=== PATIENT | male | born 1965 | race Hispanic/Latino ===

== ENCOUNTER 2022-05-30 08:09 | Emergency (ER) | payer SELFPAY ==
--- NOTE | 2022-05-30 09:51 | Emergency Department Report ---
ED Syncope [facility] - General Chief Complaint: Head Injury Stated Complaint: FALL - History of Present Illness Initial Comments: 57-year-old male from [place] presents to the ED with syncope episode. Patient states that he started on new medication for anxiety and depression which caused him to be dizzy. He states that he had a history of hypertension and current taking-unknown hypertension medication. Patient states he also has a history of alcoholism. States that he was on a nonvoluntary 1013 and [place] due to suicidal ideation after binge drinking. Patient states that he do not remember much but feeling lightheaded and awaking with a bruising noted to the right eye. Denies headache blurry vision nausea vomiting at present time., Patient will transport via EMS. Timing/Prior Episodes: no prior history Precipitating Factors: Positive: lightheadedness Loss of Consciousness: brief (seconds) Current Symptoms: back to normal - Related Data Allergies/Adverse Reactions: Allergies codeine Allergy (Verified 05/30/22 09:52) Itching ED Review of Systems ROS: Stated complaint: FALL Other details as noted in HPI ED Physical Exam - General Limitations: No Limitations ED Course Vital Signs 05/30/22 05/30/22 05/30/22 08:10 09:47 11:40 Pulse Rate 90 83 78 Respiratory 14 17 Rate Blood Pressure 133/87 114/75 118/72 [Left] O2 Sat by Pulse 98 98 98 Oximetry ED Medical Decision Making - Lab Data Result diagrams: 05/30/22 10:55 05/30/22 09:44 - Radiology Data [facility] [address] [place] [address] Cat Scan Report Signed Patient: DESIREE SEPULVEDA MR#: [id number] 3 : 1965 Acct:[id number] Age/Sex: 57 / M ADM Date: 05/30/22 Loc: ED Attending Dr: Ordering Physician: RADHA ELLIOTT Date of Service: 05/30/22 Procedure(s): CT head/brain wo con Accession Number(s): [id number] cc: RADHA ELLIOTT CT HEAD WITHOUT CONTRAST INDICATION / CLINICAL INFORMATION: Syncope. TECHNIQUE: All CT scans at this location are performed using CT dose reduction for ALARA by means of automated exposure control. COMPARISON: None available. FINDINGS: HEMORRHAGE: No evidence of intracranial hemorrhage or extra-axial fluid collection. EXTRA-AXIAL SPACES: Cortical sulci, sylvian fissures and basilar cisterns have an unremarkable appearance. VENTRICULAR SYSTEM: The third and lateral ventricles are of normal size and configuration. CEREBRAL PARENCHYMA: No areas of abnormal brain parenchymal attenuation are identified. There is no indication of recent infarction. MIDLINE SHIFT OR HERNIATION: There is no mass effect. CEREBELLUM / BRAINSTEM: Brainstem and cerebellum have an unremarkable appearance. MIDLINE STRUCTURES:No abnormalities of the pituitary gland or pineal region are identified. INTRACRANIAL VESSELS:Calcified atherosclerotic plaque is present along the course the cavernous segments of both internal carotid arteries. ORBITS: Status post bilateral cataract surgery. No additional abnormality. SOFT TISSUES of HEAD: No significant abnormality. CALVARIUM: Evaluation of bone windows reveals no abnormalities. PARANASAL SINUSES / MASTOID AIR CELLS: Visualized portions of the paranasal sinuses are free from inflammatory mucosal disease. Mastoid air cells are normally pneumatized. IMPRESSION: 1. No acute intracranial abnormality. Signer Name: Frantz Arboleda MD Signed: 05/30/2022 10:44 AM Workstation Name: [id number] Transcribed By: Dictated By: Frantz Arboleda MD Electronically Authenticated By: Frantz Arboleda MD Signed Date/Time: 05/30/22 1044 DD/ 1041 TD/TT: [facility] [address] [place] [address] Cat Scan Report Signed Patient: DESIREE SEPULVEDA MR#: [id number] 3 : 1965 Acct:[id number] Age/Sex: 57 / M ADM Date: 05/30/22 Loc: ED Attending Dr: Ordering Physician: RADHA ELLIOTT Date of Service: 05/30/22 Procedure(s): CT facial bones wo con Accession Number(s): [id number] cc: RADHA ELLIOTT CT MAXILLOFACIAL WITHOUT CONTRAST INDICATION / CLINICAL INFORMATION: right eye injury. TECHNIQUE: All CT scans at this location are performed using CT dose reduction for ALARA by means of automated exposure control. COMPARISON: Head CT also dated 05/30/2022 FINDINGS: FACIAL BONES: No fracture or other significant abnormality. CRUSHER SUPERVISOR SPACES:Evaluation of the commodity manager space structures reveal no abnormalities. SALIVARY GLANDS: Parotid and submandibular salivary glands have an unremarkable appearance. PARANASAL SINUSES: Paranasal sinuses are free from inflammatory mucosal disease. NASAL CAVITY: No significant abnormality. ORBITS: Status post bilateral cataract surgery. No additional abnormality. There is no indication of orbital fracture. TEMPORAL BONES:Visualized mastoid air cells and the middle ear cavities are normally pneumatized. VISUALIZED INTRACRANIAL STRUCTURES: Please refer to CT head report which is dictated separately IMPRESSION: 1. No indication of facial fracture or other osseous abnormality. Signer Name: Frantz Arboleda MD Signed: 05/30/2022 10:46 AM Workstation Name: [id number] Transcribed By: Dictated By: Frantz Arboleda MD Electronically Authenticated By: Frantz Arboleda MD Signed Date/Time: 05/30/22 1046 - Medical Decision Making 57-year-old male from [place] presents to the ED with syncope episode. Patient states that he started on new medication for anxiety and depression which caused him to be dizzy. He states that he had a history of hypertension and current taking-unknown hypertension medication. Patient states he also has a history of alcoholism. States that he was on a nonvoluntary 1013 and [place] due to suicidal ideation after binge drinking. Patient states that he do not remember much but feeling lightheaded and awaking with a bruising noted to the right eye. Denies headache blurry vision nausea vomiting at present time., Patient will transport via EMS. CT of the head and face shows no abnormality. Rechecked the patient is resting quietly quietly and comfortable and feeling better. I discussed the results of diagnostic study, my clinical impression and the plan for further treatment with the patient. Patient agrees with plan and discharge at this present time. All question addressed. I have given the patient instruction regarding a diagnosis ,expectation ,follow- up and return precaution. I explained to the patient that emergent condition may arise and to return to the ED for new worsen and any new persisting condition. I have explained the importance of following up with the primary care physician or referral physician listed below has instructed. The patient verbalized understanding of discharge instruction. Abnormal Lab Results 05/30/22 05/30/22 05/30/22 09:44 09:44 10:55 WBC 8.3 RBC 3.82 Hgb 14.2 Hct 40.7 MCV 106 H MCH 37 H MCHC 35 H RDW 18.3 H Plt Count 96 L PT 13.0 INR 0.87 Sodium 142 Potassium 3.6 Chloride 100.8 Carbon Dioxide 28 Anion Gap 17 BUN 19 Creatinine 0.9 Estimated GFR > 60 BUN/Creatinine Ratio 21 Glucose 97 Calcium 9.4 Magnesium 1.40 L Total Bilirubin 0.40 AST 39 ALT 38 Alkaline Phosphatase 87 Total Creatine Kinase 125 CK-MB (CK-2) 2.4 CK-MB (CK-2) Rel Index 1.9 Troponin T < 0.010 Total Protein 6.3 Albumin 3.9 Albumin/Globulin Ratio 1.6 Critical care attestation.: If time is entered above; I have spent that time in minutes in the direct care of this critically ill patient, excluding procedure time. ED Disposition Clinical Impression: Contusion, eye, right Qualifiers: Encounter type: initial encounter Qualified Code(s): S05.11XA - Contusion of eyeball and orbital tissues, right eye, initial encounter Syncope Qualifiers: Syncope type: unspecified Qualified Code(s): R55 - Syncope and collapse Disposition: 01 HOME / SELF CARE / HOMELESS Is pt being admited?: No Does the pt Need Aspirin: No Condition: Stable Instructions: Syncope (ED), Eye Contusion, [id number], How to Use Cold Therapy, Rcfd-[id number], Syncope, [id number], How to Use Cold Therapy Additional Instructions: Return to [place] Return to the ED for any worsening symptoms Time of Disposition: 11:46
[2022-05-30 10:30] LABS: INR 0.87 (0.87-1.13)
[2022-05-30 10:44] LABS: Creatine Kinase MB 2.4 ng/mL (0.0-4.0)
[2022-05-30 10:46] LABS: Alanine Aminotransferase 38 units/L (7-56); Albumin 3.9 g/dL (3.9-5); BUN/Creatinine Ratio 21; Blood Urea Nitrogen 19 mg/dL (9-20); Calcium 9.4 mg/dL (8.4-10.2); Hemolysis Index 10
--- NOTE | 2022-05-30 10:49 | Cat Scan Report ---
CT HEAD WITHOUT CONTRAST INDICATION / CLINICAL INFORMATION: Syncope. TECHNIQUE: All CT scans at this location are performed using CT dose reduction for ALARA by means of automated e xposure control. COMPARISON: None available. FINDINGS: HEMORRHAGE: No evidence of intracranial hemorrhage or extra-axial fluid collection. EXTRA-AXIAL SPACES: Cortical sulci, sylvian fissures and basilar cisterns have an unremarkable appear ance. VENTRICULAR SYSTEM: The third and lateral ventricles are of normal size and configuration. CEREBRAL PARENCHYMA: No areas of abnormal brain parenchymal attenuation are identified. There is no i ndication of recent infarction. MIDLINE SHIFT OR HERNIATION: There is no mass effect. CEREBELLUM / BRAINSTEM: Brainstem and cerebellum have an unremarkable appearance. MIDLINE STRUCTURES:No abnormalities of the pituitary gland or pineal region are identified. INTRACRANIAL VESSELS:Calcified atherosclerotic plaque is present along the course the cavernous segme nts of both internal carotid arteries. ORBITS: Status post bilateral cataract surgery. No additional abnormality. SOFT TISSUES of HEAD: No significant abnormality. CALVARIUM: Evaluation of bone windows reveals no abnormalities. PARANASAL SINUSES / MASTOID AIR CELLS: Visualized portions of the paranasal sinuses are free from inf lammatory mucosal disease. Mastoid air cells are normally pneumatized. IMPRESSION: 1. No acute intracranial abnormality. Signer Name: Frantz Arboleda MD Signed: 05/30/2022 10:44 AM Workstation Name: [id number]
--- NOTE | 2022-05-30 10:50 | Cat Scan Report ---
CT MAXILLOFACIAL WITHOUT CONTRAST INDICATION / CLINICAL INFORMATION: right eye injury. TECHNIQUE: All CT scans at this location are performed using CT dose reduction for ALARA by means of automated e xposure control. COMPARISON: Head CT also dated 05/30/2022 FINDINGS: FACIAL BONES: No fracture or other significant abnormality. MUD MIXER HELPER SPACES:Evaluation of the reference assistant space structures reveal no abnormalities. SALIVARY GLANDS: Parotid and submandibular salivary glands have an unremarkable appearance. PARANASAL SINUSES: Paranasal sinuses are free from inflammatory mucosal disease. NASAL CAVITY: No significant abnormality. ORBITS: Status post bilateral cataract surgery. No additional abnormality. There is no indication of orbital fracture. TEMPORAL BONES:Visualized mastoid air cells and the middle ear cavities are normally pneumatized. VISUALIZED INTRACRANIAL STRUCTURES: Please refer to CT head report which is dictated separately IMPRESSION: 1. No indication of facial fracture or other osseous abnormality. Signer Name: Frantz Arboleda MD Signed: 05/30/2022 10:46 AM Workstation Name: [id number]
[2022-05-30 11:29] LABS: Hematocrit 40.7 % (35.5-45.6); Hemoglobin 14.2 gm/dl (11.8-15.2); Mean Corpuscular HGB Conc 35 % (32-34); Mean Corpuscular Volume 106 fl (84-94); Red Blood Count 3.82 M/mm3 (3.65-5.03); Red Cell Distribution Width 18.3 % (13.2-15.2)
[2022-05-30 11:30] LABS: Platelet Count 96 K/mm3 (140-440)
[2022-05-31 02:14] VITALS: BP 138/70
--- NOTE | 2022-05-31 13:19 | Electrocardiograph Report ---
[facility] Test Date: 2022-05-30 Test Time: 09:39:03 Pat Name: DESIREE SEPULVEDA Department: Room: Gender: M Standards Analyst: ASYA : 1965 Requested By: MARINA QIU Order Number: [id number] Reading MD: Jonathan Almanza Measurements Intervals [place] Rate: 77 P: 19 FL: 153 QRS: 33 QRSD: 99 T: 33 QT: 374 QTc: 422 Interpretive Statements Sinus rhythm No previous ECG available for comparison Electronically Signed On 05-31-2022 13:18:54 EDT by Jonathan Almanza
== END 2022-05-31 02:12 | disposition home or self-care (01) ==
LOC: ED 08:09
DX: S05.11XA Contusion of eyeball and orbital tissues, right eye, initial encounter (principal); R55 Syncope and collapse; Z88.5 Allergy status to narcotic agent; Z79.899 Other long term (current) drug therapy; X58.XXXA Exposure to other specified factors, initial encounter; Y93.89 Activity, other specified; Y92.89 Other specified places as the place of occurrence of the external cause; Y99.8 Other external cause status
CPT/HCPCS: 36415; 70450; 70486; 80053; 82550; 82553; 83735; 84484; 85027; 85610; 93005; 99284